=== PATIENT | male | born 1970 | race African-American/Black ===

== ENCOUNTER → 2016-12-16 | Outpatient (CLI) | payer MEDICAID ==
[~2016-12-16] MED LIST: HYDROCHLOROTH12.5 MG PO; NEURONTIN300 MG PO; PERCOCET 5-3251 TAB PO
--- NOTE | ~2016-12-16 | CR58 ---
[facility] A Service of [facility] & [facility] RADIOLOGY TEXT RESULTS PATIENT: NELSON MACIAS LOCATION: [facility] : [birth year] UNIT #: [id number] AGE: [address]: HAN BURT SEX: M ORDER DR: [id number] [facility]. [place], [place] [address] [id number] O MR#: [id number] Acc #: [id number] NAME: NELSON MACIAS : 1970 SEX: M STUDY DATE/TIME: 12/16/2016 14:10 UNIT: [facility] ROOM: STUDY DESCRIPTION: CR Cervical Spine 2 or 3 Views Attending Physician: Marquis Pandya Ordering Physician: Marquis Pandya Primary Care Physician: Letha Blackman M.D. MEDICAL IMAGING REPORT This report is preliminary unless electronic signature is present EXAM 4 views cervical spine DATE 12/16/2016 HISTORY 46-year-old male with neck pain for 1 month. Had C3-C7 surgery in 2014. COMPARISON No previous cervical spine imaging at this institution for comparison. FINDINGS AP, odontoid, lateral, and swimmer's views were obtained. Bilateral pedicle screws are present at C3, C4, C5, C6 and T1. Vertical fusion rods are seen from C3 through the T1 levels. The hardware appears intact. No acute cervical spine fracture is seen. No surgical subluxation is evident. There is moderate diminished disc height at C3-4 through C7-T1 levels with anterior osteophyte formation at each level. There is xyez-sg-[id number] diminished disc height at C2-3 with prominent anterior osteophyte formation. Multilevel cervical facet arthropathy is present, thought to be greatest on the left at C5-6. Craniocervical junction is intact. No abnormal prevertebral soft tissue swelling is seen. IMPRESSION 1. Postsurgical changes of the cervical spine as described, and the hardware appears intact. 2. Moderate diminished disc height at multiple cervical levels, from C3-4 through C7-T1. 3. Facet arthropathy. Mid cervical facet arthropathy greatest on the left at C5-6. 4. Acute cervical spine findings. [facility] A Service of [facility] & [facility] RADIOLOGY TEXT RESULTS PATIENT: NELSON MACIAS LOCATION: [facility] : 68 UNIT #: [id number] AGE: [address]: HAN BURT SEX: M ORDER DR: Dictated by... Dipti Amador M.D. THIS IS AN ELECTRONICALLY VERIFIED REPORT Dipti Amador M.D. at 12/22/2016 8:30 AM [email or web address]/[email or web address] TD: 12/19/2016 11:11 JOB #: [id number] MEDICAL IMAGING REPORT Page 1 of 1 COPY
== END | disposition home or self-care (01) ==
LOC: CRAD 13:43
DX: M54.2 Cervicalgia (principal); M46.92 Unspecified inflammatory spondylopathy, cervical region; M50.81 Other cervical disc disorders, high cervical region; Z98.890 Other specified postprocedural states
CPT/HCPCS: 72040